=== PATIENT | female | born 2000 | race American Indian/Alaskan Native ===

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

== ENCOUNTER 2020-04-18 14:02 | Emergency (ER) | payer BC, OTHER ==
[2020-04-18] MEDS ORDERED: Morphine 15 MG Tab PO ONE (14:38)
[2020-04-18] MEDS ORDERED: Acetaminophen 325 MG Tab PO ONE (14:38)
--- NOTE | 2020-04-18 14:55 | EDM.PDOC ---
ED 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 She complains of severe lateral left knee pain and proximal fibular pain. No loss of consciousness. She did not strike or hurt her abdomen. No vaginal bleeding or discharge. Her water did not break. No urinary symptoms. Denies any head trauma or neck pain. Review of systems: A 10-point review of systems, other than pertinent positives and negatives as stated per HPI, is otherwise negative. Past medical history: As per history of present illness and as reviewed below otherwise noncontributory. Surgical history: As per history of present illness and as reviewed below otherwise noncontri butory. Social history: No reported history of drug or alcohol abuse. Family history: As per history of present illness and as reviewed below otherwise noncontributory. Physical exam: VITAL SIGNS: Reviewed. GENERAL: Appears to be in acute pain HEAD: No signs of head trauma. EYES: Pupils are equal. Extraocular motions intact. EARS: Hearing grossly intact. MOUTH: Oropharynx is normal. NECK: Supple. NEXUS Criteria for Imaging of C-Spine: Focal Neuro Deficit: No Spinal Midline Tenderness: No ALOC: No Intoxication: No Distracting Injury: No C-Spine can be clinically cleared. No imaging Required. CHEST: Chest with clear breath sounds bilaterally. No wheezes, rales, or rhonchi. CARDIAC: Regular rate and rhythm. Normal S1 and S2, without murmurs, gallops, or rubs. VASCULAR: Peripheral pulses normal and equal in all extremities. ABDOMEN: Soft, without detectable tenderness. No sign of distention. No rebound or guarding, and no masses palpated. MUSCULOSKELETAL: Anterior posterior ligament is stable in the left knee. The medial collateral ligament is stable. The lateral collateral ligament does have some laxity when compared with the other side. Patella is normal and there is no evidence of dislocation. Some mild joint effusion is palpable. Distal neurovascular function is intact. Proximal fibular head on the left is very tender. NEUROLOGIC EXAM: Alert and oriented x 3. No focal sensory or motor deficits. Speech normal. Follows commands. PSYCHIATRIC: Mood normal. SKIN: No rash or lesions. Initial Differential Diagnosis & Plan: Extremity trauma: Differential diagnosis includes fracture, dislocation, strain, contusion, tendon or ligamentous injury, compartment syndrome, neurovascular injury, muscle rupture. Mild laxity in the lateral collateral ligament on the left knee. She also has proximal tenderness at the fibular head. I will obtain an x-ray of the knee and tibia-fibula. No ankle pain. Distal neurovascular function is intact. Definitive disposition and diagnosis as appropriate pending reevaluation and review of above. left lower leg Pain Score (Numeric/FACES): 10 - Related Data Allergies Allergy/AdvReac Type Severity Reaction Status Date / Time No Known Allergies Allergy Verified 04/18/20 14:06 Home Meds: Home Meds Famotidine 20 mg PO BID 04/18/20 [History] Vits #93/Iron Fum/FA [ Formula Tablet] 1 each PO DAILY 04/18/20 [History] Past Medical History - Past Health History Medical/Surgical History: Denies Medical/Surgical History HEENT History: Reports: Other (See Below) Other HEENT History: wears glasses Cardiovascular History: Reports: None Respiratory History: Reports: None Gastrointestinal History: Reports: Cholelithiasis Genitourinary History: Reports: None 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: Musculoskeletal History: Reports: None Neurological History: Reports: None Psychiatric History: Reports: None Endocrine/Metabolic History: Reports: Obesity/BMI 30+ Hematologic History: Reports: None Immunologic History: Reports: None Oncologic (Cancer) History: Reports: None Dermatologic History: Reports: None - Infectious Disease History Infectious Disease History: Reports: None - Past Surgical History Head Surgeries/Procedures: Reports: None HEENT Surgical History: Reports: Oral Surgery Cardiovascular Surgical History: Reports: None Respiratory Surgical History: Reports: None GI Surgical History: Reports: Cholecystectomy Female Surgical History: Reports: None Endocrine Surgical History: Reports: None Neurological Surgical History: Reports: None Musculoskeletal Surgical History: Reports: None Oncologic Surgical History: Reports: None Dermatological Surgical History: Reports: None Social & Family History - Family History Family Medical History: Noncontributory - Tobacco Use Smoking Status *Q: Never Smoker - Caffeine Use Caffeine Use: Reports: Energy Drinks - Recreational Drug Use Recreational Drug Use: No ED ROS GENERAL - Review of Systems Review Of Systems: See Below (noted) ED EXAM, GENERAL - Physical Exam Exam: See Below (noted) ED GENERAL MEDICAL PROCEDURES - Additional/Other Procedure(s) Other (Free Text) Procedure(s): PROCEDURE: Fracture Care LOCATION AND FRACTURE TYPE: Proximal fibular fracture; left INDICATION: Fracture DETAILS: [inline traction was applied with return of normal anatomic alignment.] SPLINTING PROCEDURE NOTE: Short leg posterior COMPLICATIONS: None NEUROVASCULAR EXAM: intact both before and after procedure. Course - Vital Signs Last Recorded V/S: Last Vital Signs Temp 97.5 F 04/18/20 14:07 Pulse 81 04/18/20 14:07 Resp 20 04/18/20 14:07 BP Pulse Ox 97 04/18/20 14:07 - Orders/Labs/Meds Orders: Active Orders 24 hr Category Date Time Status Splinting [RC] ASDIRECTED Care 04/18/20 15:14 Active DME for Discharge [COMM] Stat Oth 04/18/20 15:29 Ordered Meds: Medications Discontinued Medications Generic Name Dose Route Start Last Admin Trade Name Keesha PRN Reason Stop Dose Admin Acetaminophen 975 mg 04/18/20 14:38 04/18/20 15:07 Tylenol PO 04/18/20 14:39 975 mg NOW ONE Administration Morphine Sulfate 15 mg 04/18/20 14:38 04/18/20 15:06 Morphine PO 04/18/20 14:39 15 mg ONETIME ONE Administration - Re-Assessments/Exams Free Text/Narrative Re-Assessment/Exam: 04/18/20 15:15 X-rays reveal proximal fibular fracture which is the area of tenderness. I will place the patient in a short leg posterior and have her follow-up with orthop edics. My diagnostic impression: 1. Proximal fibular fracture; left 2. Ligamentous laxity left knee lateral collateral ligament strain 3. Second trimester Departure - Departure Time of Disposition: 15:16 Disposition: Home, Self-Care 01 Clinical Impression: Fracture, fibula, proximal, Lateral collateral ligament sprain of knee - Discharge Information *PRESCRIPTION DRUG MONITORING PROGRAM REVIEWED*: Not Applicable *COPY OF PRESCRIPTION DRUG MONITORING REPORT IN PATIENT GIAN: Not Applicable Instructions: Nondisplaced Fibular Ankle Fracture Treated With Immobilization, Adult, How to Use Cold Therapy, [id number], Knee Sprain, Adult, [id number], Elastic Bandage and RICE Therapy Referrals: Nimisha Summers MD [Primary Care Provider] - Forms: ED Department Discharge Additional Instructions: The following information is given to patients seen in the emergency department who are being discharged to home. This information is to outline your options for follow-up care. We provide all patients seen in our emergency department with a follow-up referral. The need for follow-up, as well as the timing and circumstances, are variable depending upon the specifics of your emergency department visit. If you don't have a primary care physician on staff, we will provide you with a referral. We always advise you to contact your personal physician following an emergency department visit to inform them of the circumstance of the visit and for follow-up with them and/or the need for any referrals to a consulting specialist. The emergency department will also refer you to a specialist when appropriate. This referral assures that you have the opportunity for follow-up care with a specialist. All of these measure are taken in an effort to provide you with optimal care, which includes your follow-up. Thank you for coming to the [facility] urgency department for your care today. It was Dr. Tolliver's pleasure to take care of you. You have a proximal fibular fracture and a lateral collateral ligament strain. These can be very painful. Please use the splint as directed. Please use the crutches. Follow-up with the glaucoma specialist. Return emergency department for worsening or any other concerns. Please stay mobile. You are at high risk to have a blood clot in your leg or lungs. It is important for you to get up and move around every couple of hours unless you are asleep. [facility] - Orthopedic Clinic Professional Building [address] [place] [address], [address] [place] [address] Under all circumstances we always encourage you to contact your private physician who remains a resource for coordinating your care. When calling for follow-up care, please make the office aware that this follow-up is from your recent emergency room visit. If for any reason you are refused follow-up, please contact the [facility] Emergency Department at and asked to speak to the emergency department charge nurse. Sepsis Event Note (ED) - Evaluation Sepsis Screening Result: No Definite Risk - Focused Exam Vital Signs: Vital Signs Temp Pulse Resp Pulse Ox 04/18/20 14:07 97.5 F 81 20 97 - My Orders Last 24 Hours: My Active Orders 04/18/20 15:14 Splinting [RC] ASDIRECTED 04/18/20 15:29 DME for Discharge [COMM] Stat - Assessment/Plan Last 24 Hours: My Active Orders 04/18/20 15:14 Splinting [RC] ASDIRECTED 04/18/20 15:29 DME for Discharge [COMM] Stat
--- NOTE | 2020-04-18 15:16 | CR ---
Left knee: AP, lateral and sunrise patellar views of the left knee were obtained. Comparison: No prior knee exam. Medial and lateral joint compartments are maintained in height. Lucency is seen within the fibular head compatible with nondisplaced fracture. Small joint effusion is suggested. No additional abnormality is appreciated. Impression: 1. Findings compatible with nondisplaced fracture involving the fibular head. Diagnostic code #3 This report was dictated in MDT
--- NOTE | 2020-04-18 15:16 | CR ---
Left tibia and fibula: AP and lateral views of the left tibia and fibula were obtained. Nondisplaced fracture involving the fibular head is again noted. No additional fracture or other bony abnormality is appreciated. Impression: 1. Nondisplaced fibular head fracture. 2. Left tibia and fibula study is otherwise unremarkable. Diagnostic code #2 This report was dictated in MDT
== END 2020-04-18 15:45 | disposition home or self-care (01) ==
LOC: MW.ED 14:02
DX: O9A.212 Injury, poisoning and certain other consequences of external causes complicating pregnancy, second trimester (principal); S82.832A Other fracture of upper and lower end of left fibula, initial encounter for closed fracture; S83.422A Sprain of lateral collateral ligament of left knee, initial encounter; O99.212 Obesity complicating pregnancy, second trimester; X50.1XXA Overexertion from prolonged static or awkward postures, initial encounter; Y92.009 Unspecified place in unspecified non-institutional (private) residence as the place of occurrence of the external cause; Z3A.26 26 weeks gestation of pregnancy
CPT/HCPCS: 29515; 73562; 73590; 99283; A9270; 27780

== ENCOUNTER 2020-07-14 12:34 | Inpatient (IN) | payer BC, OTHER ==
[2020-07-14] MEDS ORDERED: Nalbuphine 10 MG/1 ML Vial IVPUSH PRN (16:06)
[2020-07-14] MEDS ORDERED: Sodium Chloride 0.9% 10 ML SDV IV PRN (16:06)
[2020-07-14] MEDS ORDERED: Lidocaine 1% 50 ML MDV INJECT PRN (16:06)
[2020-07-14] MEDS ORDERED: Methylergonovine 0.2 MG/1 ML Amp IM PRN (16:06)
[2020-07-14] MEDS ORDERED: Carboprost Tromethamine 250 MCG/1 ML Amp IM PRN (16:06)
[2020-07-14] MEDS ORDERED: Sodium Chloride 0.9% 10 ML Syringe FLUSH PRN (16:06)
[2020-07-14] MEDS ORDERED: Sodium Chloride 0.9% 2.5 ML Syringe FLUSH PRN (16:06)
[2020-07-14] MEDS ORDERED: Misoprostol 200 MCG Tab PO PRN (16:06)
[2020-07-14] MEDS ORDERED: Butorphanol 1 MG/ML SDV IVPUSH PRN (16:06)
[2020-07-14] MEDS ORDERED: Tranexamic Acid 1,000 MG in Sodium Chloride 0.9% 100 ML IV PRN (16:06)
[2020-07-14] MEDS ORDERED: Water For Irrigation,Sterile 1,000 ML Container IRR PRN (16:06)
[2020-07-14] MEDS ORDERED: Oxytocin/0.9 % Sodium Chloride 30 UNIT/500 ML BAG IV SCH ×2 (16:15→21:00)
[2020-07-14] MEDS: Lactated Ringers 1,000 ML IV SCH ×3 (17:40→18:36)
[2020-07-14] MEDS ORDERED: fentaNYL 100 MCG/2 ML SDV ONE (18:21)
[2020-07-14] MEDS ORDERED: Ropivacaine HCl/PF 100 ML ONE (18:21)
--- NOTE | 2020-07-14 19:14 | PCM.PREANE ---
Preanesthetic Assessment - Anesthesia/Transfusion/Family Hx Anesthesia History: Prior Anesthesia Without Reaction Family History of Anesthesia Reaction: No Transfusion History: No Prior Transfusion(s) Intubation History: Unknown - Physical Assessment NPO Status Date: 07/14/20 NPO Status Time: 12:00 Height: 1.57 m Weight: 93.44 kg ASA Class: 2 - Lab Values: Laboratory Last Values WBC 16.53 K/uL (4.0-11.0) H 07/14/20 16:20 RBC 3.72 M/uL (4.30-5.90) L 07/14/20 16:20 Hgb 11.8 g/dL (12.0-16.0) L 07/14/20 16:20 Hct 35.8 % (36.0-46.0) L 07/14/20 16:20 MCV 96.2 fL (80.0-98.0) 07/14/20 16:20 MCH 31.7 pg (27.0-32.0) 07/14/20 16:20 MCHC 33.0 g/dL (31.0-37.0) 07/14/20 16:20 RDW Std Deviation 50.2 fl (28.0-62.0) 07/14/20 16:20 RDW Coeff of Ladi 14 % (11.0-15.0) 07/14/20 16:20 Plt Count 230 K/uL (150-400) 07/14/20 16:20 MPV 10.00 fL (7.40-12.00) 07/14/20 16:20 Nucleated RBC % 0.0 /100WBC 07/14/20 16:20 Nucleated RBCs # 0 K/uL 07/14/20 16:20 SARS-CoV-2 RNA (ROCIO) NEGATIVE (NEGATIVE) 07/14/20 14:24 Blood Type O NEGATIVE 07/14/20 16:20 Antibody Screen NEGATIVE 07/14/20 16:20 - Allergies Allergies/Adverse Reactions: Allergies Allergy/AdvReac Type Severity Reaction Status Date / Time No Known Allergies Allergy Verified 04/18/20 14:06 - Acknowledgements Anesthesia Type Planned: Epidural Pt an Appropriate Candidate for the Planned Anesthesia: Yes Alternatives and Risks of Anesthesia Discussed w Pt/Guardian: Yes Pt/Guardian Understands and Agrees with Anesthesia Plan: Yes PreAnesthesia Questionnaire - Past Health History Medical/Surgical History: Denies Medical/Surgical History HEENT History: Reports: Impaired Vision, Other (See Below) Other HEENT History: wears glasses Cardiovascular History: Reports: None Respiratory History: Reports: None Gastrointestinal History: Reports: Cholelithiasis Genitourinary History: Reports: None 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: Musculoskeletal History: Reports: None Neurological History: Reports: None Psychiatric History: Reports: None Endocrine/Metabolic History: Reports: Obesity/BMI 30+ Hematologic History: Reports: None Immunologic History: Reports: None Oncologic (Cancer) History: Reports: None Dermatologic History: Reports: None - Infectious Disease History Infectious Disease History: Reports: None - Past Surgical History Head Surgeries/Procedures: Reports: None HEENT Surgical History: Reports: Oral Surgery Cardiovascular Surgical History: Reports: None Respiratory Surgical History: Reports: None GI Surgical History: Reports: Cholecystectomy Female Surgical History: Reports: None Endocrine Surgical History: Reports: None Neurological Surgical History: Reports: None Musculoskeletal Surgical History: Reports: None Oncologic Surgical History: Reports: None Dermatological Surgical History: Reports: None - SUBSTANCE USE Tobacco Use Status *Q: Never Tobacco User Recreational Drug Use History: No - HOME MEDS Home Medications: Home Meds Famotidine 20 mg PO BID 04/18/20 [History] Vits #93/Iron Fum/FA [ Formula Tablet] 1 each PO DAILY 04/18/20 [History] - CURRENT (IN HOUSE) MEDS Current Meds: Current Medications Butorphanol Tartrate (Stadol) 1 mg IVPUSH Q1H PRN PRN Reason: Pain Carboprost Tromethamine (Hemabate Ds) 250 mcg IM ASDIRECTED PRN PRN Reason: Post Hemorrhage Lactated Ringer's (Ringers, Lactated) 1,000 mls @ 150 mls/hr IV ASDIRECTED ZION Last Admin: 07/14/20 18:36 Dose: 999 mls/hr Documented by: Oxytocin/Sodium Chloride (Oxytocin 30 Unit/500 Ml-Ns) 30 unit in 500 mls @ 999 mls/hr IV TITRATE [facility] Tranexamic Acid 1,000 mg/ (Sodium Chloride) 110 mls @ 660 mls/hr IV ONETIME PRN PRN Reason: Bleeding Lidocaine HCl (Xylocaine 1%) 50 ml INJECT ONETIME PRN PRN Reason: Laceration repair Methylergonovine Maleate (Methergine) 0.2 mg IM ASDIRECTED PRN PRN Reason: Post Hemorrhage Misoprostol (Cytotec) 200 mcg PO ONETIME PRN PRN Reason: Post Hemorrhage Nalbuphine HCl (Nubain) 10 mg IVPUSH Q1H PRN PRN Reason: Pain (severe 7-10) Sodium Chloride (Saline Flush) 10 ml FLUSH ASDIRECTED PRN PRN Reason: Keep Vein Open Sodium Chloride (Saline Flush) 2.5 ml FLUSH ASDIRECTED PRN PRN Reason: Keep Vein Open Sodium Chloride (Normal Saline) 10 ml IV ASDIRECTED PRN PRN Reason: IV Use Sterile Water (Sterile Water For Irrigation) 1,000 ml IRR ASDIRECTED PRN PRN Reason: delivery Discontinued Medications Fentanyl (Sublimaze) Confirm Administered Dose 100 mcg .ROUTE .STK-MED ONE Stop: 07/14/20 18:22 Ropivacaine (Naropin 0.2%) Confirm Administered Dose 100 mls @ as directed .ROUTE .STK-MED ONE Stop: 07/14/20 18:22
--- NOTE | 2020-07-14 19:17 | PCM.PRNOTE ---
- Free Text/Narrative Note: Anes Note Patient requests epidural for L&D. Sitting position level L3-L4 midline approach. Sterile technique. Chloraprep scrub to lumbar area. Sterile fenestrated drape applied. Epidural space easily achieved singel attempt using TROY technique. TROY at 3 cm. Cath threaded 5 cm with ease. Cath secured at skin using sterile clear adhesive dressing. Test 1829 3 cc 1.5% lido with epi negative. Load 1833 10 cc 0.2% ropiviciane with 1 mcg cc fentnayl in slow divided doses. 1835 pump started with 90 cc same solution. Rate is 8 cc hr with 6 cc q 20 min prn bolus. 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
[2020-07-14] MEDS ORDERED: Lanolin 100% Cream 7 GM Tube TOP PRN (23:35)
[2020-07-14] MEDS ORDERED: Witch Hazel Medicated Pads 40/Jar TOP PRN (23:35)
[2020-07-14] MEDS ORDERED: Ibuprofen 400 MG Tab PO PRN (23:35)
[2020-07-14] MEDS ORDERED: Acetaminophen 500 MG Tab PO PRN (23:35)
[2020-07-14] MEDS ORDERED: oxyCODONE 5 MG Tab PO PRN (23:35)
[2020-07-14] MEDS ORDERED: Bisacodyl 10 MG Supp RECTAL PRN (23:35)
[2020-07-14] MEDS ORDERED: Benzocaine/Menthol 20%-0.5% Spray 78 GM Cannister TOP PRN (23:35)
--- NOTE | 2020-07-14 23:39 | PCM.DEL ---
L & D Note - General Info Date of Service: 07/14/20 - Delivery Note Labor: Augmented by Oxytocin Delivery Outcome: Livebirth Presentation: Left Occiput Anterior (NADYA) Nuchal Cord: None Anesthesia Type: Epidural Amniotic Fluid Description: Meconium Stained Episiotomy Type: None Laceration: 1st Degree Suture type: Vicryl Suture size: 3-0 Placenta: Intact Cord: 3 Vessels Estimated Blood Loss: 300 Resuscitation Needed: No Score 1 min: 9 Score 5 min: 9 Delivery Comments (Free Text/Narrative):: Live male delivered at 2258 , 9/9 weight 3300g - General Info Date of Service: 07/14/20 Functional Status: Reports: Pain Controlled, Tolerating Diet, Ambulating, Urinating - Patient Data Weight - Most Recent: 93.44 kg Lab Results Last 24 Hours: Laboratory Results - last 24 hr 07/14/20 07/14/20 07/14/20 Range/Units 14:24 16:20 16:20 WBC 16.53 H (4.0-11.0) K/uL RBC 3.72 L (4.30-5.90) M/uL Hgb 11.8 L (12.0-16.0) g/dL Hct 35.8 L (36.0-46.0) % MCV 96.2 (80.0-98.0) fL MCH 31.7 (27.0-32.0) pg MCHC 33.0 (31.0-37.0) g/dL RDW Std Deviation 50.2 (28.0-62.0) fl RDW Coeff of Ladi 14 (11.0-15.0) % Plt Count 230 (150-400) K/uL MPV 10.00 (7.40-12.00) fL Nucleated RBC % 0.0 /100WBC Nucleated RBCs # 0 K/uL SARS-CoV-2 RNA (ROCIO) NEGATIVE (NEGATIVE) Blood Type O NEGATIVE Antibody Screen NEGATIVE Med Orders - Current: Current Medications Acetaminophen (Tylenol Extra Strength) 500 mg PO Q4H PRN PRN Reason: Pain Acetaminophen (Tylenol Extra Strength) 1,000 mg PO Q4H PRN PRN Reason: Pain Benzocaine/Menthol (Dermoplast Pain Relief 20%-0.5% [place]) 78 gm TOP ASDIRECTED PRN PRN Reason: Perineal Comfort Measure Bisacodyl (Dulcolax) 10 mg RECTAL ONETIME PRN PRN Reason: Constipation Carboprost Tromethamine (Hemabate Ds) 250 mcg IM ASDIRECTED PRN PRN Reason: Post Hemorrhage Docusate Sodium (Colace) 100 mg PO BID PRN PRN Reason: Constipation Emollient Ointment (Lansinoh Hpa) 0 gm TOP ASDIRECTED PRN PRN Reason: Sore Nipples Lactated Ringer's (Ringers, Lactated) 1,000 mls @ 150 mls/hr IV ASDIRECTED ZION Last Admin: 07/14/20 18:36 Dose: 999 mls/hr Documented by: Oxytocin/Sodium Chloride (Oxytocin 30 Unit/500 Ml-Ns) 30 unit in 500 mls @ 999 mls/hr IV TITRATE [facility] Last Admin: 07/14/20 22:59 Dose: 999 mls/hr Documented by: Tranexamic Acid 1,000 mg/ (Sodium Chloride) 110 mls @ 660 mls/hr IV ONETIME PRN PRN Reason: Bleeding Oxytocin/Sodium Chloride (Oxytocin 30 Unit/500 Ml-Ns) 30 unit in 500 mls @ 2 mls/hr IV TITRATE [facility]; Protocol Ibuprofen (Motrin) 400 mg PO Q4H PRN PRN Reason: Pain Ibuprofen (Motrin) 800 mg PO Q6H PRN PRN Reason: Pain Lidocaine HCl (Xylocaine 1%) 50 ml INJECT ONETIME PRN PRN Reason: Laceration repair Methylergonovine Maleate (Methergine) 0.2 mg IM ASDIRECTED PRN PRN Reason: Post Hemorrhage Misoprostol (Cytotec) 200 mcg PO ONETIME PRN PRN Reason: Post Hemorrhage Oxycodone HCl (Oxycodone) 5 mg PO Q2H PRN PRN Reason: Pain Sodium Chloride (Saline Flush) 10 ml FLUSH ASDIRECTED PRN PRN Reason: Keep Vein Open Sodium Chloride (Saline Flush) 2.5 ml FLUSH ASDIRECTED PRN PRN Reason: Keep Vein Open Sodium Chloride (Normal Saline) 10 ml IV ASDIRECTED PRN PRN Reason: IV Use Sterile Water (Sterile Water For Irrigation) 1,000 ml IRR ASDIRECTED PRN PRN Reason: delivery Witch Rebekah (Tucks) 1 pad TOP ASDIRECTED PRN PRN Reason: comfort care Discontinued Medications Butorphanol Tartrate (Stadol) 1 mg IVPUSH Q1H PRN PRN Reason: Pain Fentanyl (Sublimaze) Confirm Administered Dose 100 mcg .ROUTE .STK-MED ONE Stop: 07/14/20 18:22 Ropivacaine (Naropin 0.2%) Confirm Administered Dose 100 mls @ as directed .ROUTE .STK-MED ONE Stop: 07/14/20 18:22 Nalbuphine HCl (Nubain) 10 mg IVPUSH Q1H PRN PRN Reason: Pain (severe 7-10) - Problem List & Annotations (1) Vaginal delivery SNOMED Code(s): 006961247 Code(s): O80 - ENCOUNTER FOR FULL-TERM UNCOMPLICATED DELIVERY Status: Acute Current Visit: Yes - Problem List Review Problem List Initiated/Reviewed/Updated: Yes - My Orders Last 24 Hours: My Active Orders 07/14/20 14:27 Patient Status [ADT] Routine Up ad Roxy [RC] ASDIRECTED Vital Signs [RC] PER UNIT ROUTINE 07/14/20 16:06 Patient Status [ADT] Routine May Shower [RC] ASDIRECTED Notify Provider [RC] PRN Up ad Roxy [RC] ASDIRECTED Vital Signs [RC] PER UNIT ROUTINE Carboprost Tromethamine [Hemabate DS] 250 mcg IM ASDIRECTED PRN Lidocaine 1% [Xylocaine 1%] 50 ml INJECT ONETIME PRN Methylergonovine [Methergine] 0.2 mg IM ASDIRECTED PRN Sodium Chloride 0.9% [Normal Saline] 10 ml IV ASDIRECTED PRN Sodium Chloride 0.9% [Saline Flush] 10 ml FLUSH ASDIRECTED PRN Sodium Chloride 0.9% [Saline Flush] 2.5 ml FLUSH ASDIRECTED PRN Tranexamic Acid [Cyklokapron] 1,000 mg Sodium Chloride 0.9% [Normal Saline] 100 ml IV ONETIME Water For Irrigation,Sterile [Sterile Water for Irrigation] 1,000 ml IRR ASDIRECTED PRN miSOPROStoL [Cytotec] 200 mcg PO ONETIME PRN Peripheral IV Insertion Adult [OM.PC] Routine 07/14/20 16:15 Lactated Ringers [Ringers, Lactated] 1,000 ml IV ASDIRECTED Oxytocin/0.9 % Sodium Chloride [Oxytocin 30 Unit/500 ML-NS] 30 unit in 500 ml IV TITRATE 07/14/20 16:20 RPR (SYPHILIS SERO) W/ RFLX [REF] Routine 07/14/20 21:00 Oxytocin/0.9 % Sodium Chloride [Oxytocin 30 Unit/500 ML-NS] 30 unit in 500 ml IV TITRATE 07/14/20 23:35 May Shower [RC] ASDIRECTED Up ad Roxy [RC] ASDIRECTED Vital Signs [RC] PER UNIT ROUTINE BLOOD GAS ARTERIAL UMBILICAL [BG] Stat BLOOD GAS VENOUS UMBILICAL [BG] Stat RHIG WORKUP, [BBK] Routine Acetaminophen [Tylenol Extra Strength] 1,000 mg PO Q4H PRN Acetaminophen [Tylenol Extra Strength] 500 mg PO Q4H PRN Benzocaine/Menthol [Dermoplast Pain Relief 20%-0.5% [place]] 78 gm TOP ASDIRECTED PRN Docusate Sodium [Colace] 100 mg PO BID PRN Ibuprofen [Motrin] 400 mg PO Q4H PRN Ibuprofen [Motrin] 800 mg PO Q6H PRN Lanolin [Lansinoh HPA] See Dose Instructions TOP ASDIRECTED PRN bisacodyL [Dulcolax] 10 mg RECTAL ONETIME PRN oxyCODONE 5 mg PO Q2H PRN witch Rebekah [Tucks] 1 pad TOP ASDIRECTED PRN Assess Lochia [WOMSER] Per Unit Routine Assess Uterine Involution [WOMSER] Per Unit Routine Peripheral IV Discontinue [OM.PC] Routine Resuscitation Status Routine 07/15/20 05:11 HEMOGLOBIN/HEMATOCRIT,HH [HEME] Timed - Assessment Assessment:: 19yo P1 s/p PPD 0 Rh negative
[2020-07-15] MEDS: Ibuprofen 800 MG Tab PO PRN ×2 (06:18→16:03)
--- NOTE | 2020-07-15 06:55 | PCM.PNPP ---
- General Info Date of Service: 07/15/20 Subjective Update: 19yo P1 s/p PPD1 Normal lochia Functional Status: Reports: Pain Controlled, Tolerating Diet, Ambulating, Urinating - Review of Systems General: Reports: No Symptoms HEENT: Reports: No Symptoms Pulmonary: Reports: No Symptoms - General Info Date of Service: 07/15/20 - Patient Data Vital Signs - Most Recent: Last Vital Signs Temp 36.5 C 07/15/20 04:39 Pulse 94 07/15/20 04:39 Resp 20 07/15/20 04:39 BP 99/50 L 07/15/20 04:39 Pulse Ox 97 07/15/20 04:39 Weight - Most Recent: 93.44 kg Lab Results - Last 24 Hours: Laboratory Results - last 24 hr 07/14/20 07/14/20 07/14/20 Range/Units 14:24 16:20 16:20 WBC 16.53 H (4.0-11.0) K/uL RBC 3.72 L (4.30-5.90) M/uL Hgb 11.8 L (12.0-16.0) g/dL Hct 35.8 L (36.0-46.0) % MCV 96.2 (80.0-98.0) fL MCH 31.7 (27.0-32.0) pg MCHC 33.0 (31.0-37.0) g/dL RDW Std Deviation 50.2 (28.0-62.0) fl RDW Coeff of Ladi 14 (11.0-15.0) % Plt Count 230 (150-400) K/uL MPV 10.00 (7.40-12.00) fL Nucleated RBC % 0.0 /100WBC Nucleated RBCs # 0 K/uL Cord ABG pH (7.18-7.38) Cord ABG Base Excess (-10--2) Cord VBG pH (7.25-7.45) Cord VBG Base Excess (-10--2) SARS-CoV-2 RNA (ROCIO) NEGATIVE (NEGATIVE) Blood Type O NEGATIVE Antibody Screen NEGATIVE Screen (NEGATIVE) RhIG Candidate? Rhogam Indicated 07/14/20 07/15/20 07/15/20 Range/Units 22:58 00:32 05:30 WBC (4.0-11.0) K/uL RBC (4.30-5.90) M/uL Hgb 10.5 L (12.0-16.0) g/dL Hct 32.0 L (36.0-46.0) % MCV (80.0-98.0) fL MCH (27.0-32.0) pg MCHC (31.0-37.0) g/dL RDW Std Deviation (28.0-62.0) fl RDW Coeff of Ladi (11.0-15.0) % Plt Count (150-400) K/uL MPV (7.40-12.00) fL Nucleated RBC % /100WBC Nucleated RBCs # K/uL Cord ABG pH 7.173 L (7.18-7.38) Cord ABG Base Excess -12 L (-10--2) Cord VBG pH 7.262 (7.25-7.45) Cord VBG Base Excess -10 (-10--2) SARS-CoV-2 RNA (ROCIO) (NEGATIVE) Blood Type Antibody Screen Screen NEGATIVE (NEGATIVE) RhIG Candidate? YES Rhogam Indicated YES, BABY RH POS H Med Orders - Current: Current Medications Acetaminophen (Tylenol Extra Strength) 500 mg PO Q4H PRN PRN Reason: Pain Acetaminophen (Tylenol Extra Strength) 1,000 mg PO Q4H PRN PRN Reason: Pain Benzocaine/Menthol (Dermoplast Pain Relief 20%-0.5% [place]) 78 gm TOP ASDIRECTED PRN PRN Reason: Perineal Comfort Measure Bisacodyl (Dulcolax) 10 mg RECTAL ONETIME PRN PRN Reason: Constipation Carboprost Tromethamine (Hemabate Ds) 250 mcg IM ASDIRECTED PRN PRN Reason: Post Hemorrhage Docusate Sodium (Colace) 100 mg PO BID PRN PRN Reason: Constipation Emollient Ointment (Lansinoh Hpa) 0 gm TOP ASDIRECTED PRN PRN Reason: Sore Nipples Lactated Ringer's (Ringers, Lactated) 1,000 mls @ 150 mls/hr IV ASDIRECTED ZION Last Admin: 07/14/20 18:36 Dose: 999 mls/hr Documented by: Oxytocin/Sodium Chloride (Oxytocin 30 Unit/500 Ml-Ns) 30 unit in 500 mls @ 999 mls/hr IV TITRATE [facility] Last Admin: 07/14/20 22:59 Dose: 999 mls/hr Documented by: Tranexamic Acid 1,000 mg/ (Sodium Chloride) 110 mls @ 660 mls/hr IV ONETIME PRN PRN Reason: Bleeding Oxytocin/Sodium Chloride (Oxytocin 30 Unit/500 Ml-Ns) 30 unit in 500 mls @ 2 mls/hr IV TITRATE [facility]; Protocol Ibuprofen (Motrin) 400 mg PO Q4H PRN PRN Reason: Pain Ibuprofen (Motrin) 800 mg PO Q6H PRN PRN Reason: Pain Last Admin: 07/15/20 06:18 Dose: 800 mg Documented by: Lidocaine HCl (Xylocaine 1%) 50 ml INJECT ONETIME PRN PRN Reason: Laceration repair Methylergonovine Maleate (Methergine) 0.2 mg IM ASDIRECTED PRN PRN Reason: Post Hemorrhage Misoprostol (Cytotec) 200 mcg PO ONETIME PRN PRN Reason: Post Hemorrhage Oxycodone HCl (Oxycodone) 5 mg PO Q2H PRN PRN Reason: Pain Sodium Chloride (Saline Flush) 10 ml FLUSH ASDIRECTED PRN PRN Reason: Keep Vein Open Sodium Chloride (Saline Flush) 2.5 ml FLUSH ASDIRECTED PRN PRN Reason: Keep Vein Open Sodium Chloride (Normal Saline) 10 ml IV ASDIRECTED PRN PRN Reason: IV Use Sterile Water (Sterile Water For Irrigation) 1,000 ml IRR ASDIRECTED PRN PRN Reason: delivery Witch Rebekah (Tucks) 1 pad TOP ASDIRECTED PRN PRN Reason: comfort care Discontinued Medications Butorphanol Tartrate (Stadol) 1 mg IVPUSH Q1H PRN PRN Reason: Pain Fentanyl (Sublimaze) Confirm Administered Dose 100 mcg .ROUTE .STK-MED ONE Stop: 07/14/20 18:22 Ropivacaine (Naropin 0.2%) Confirm Administered Dose 100 mls @ as directed .ROUTE .STK-MED ONE Stop: 07/14/20 18:22 Nalbuphine HCl (Nubain) 10 mg IVPUSH Q1H PRN PRN Reason: Pain (severe 7-10) - Interaction Support Person: Significant Other - Exam General: Alert HEENT: Pupils Equal Neck: Supple Lungs: Clear to Auscultation Cardiovascular: Regular Rate, Regular Rhythm GI/Abdominal Exam: Normal Bowel Sounds Extremities: Normal Inspection Neurological: No New Focal Deficit Psy/Mental Status: Alert - Problem List & Annotations (1) Vaginal delivery SNOMED Code(s): 338378799 Code(s): O80 - ENCOUNTER FOR FULL-TERM UNCOMPLICATED DELIVERY Status: Acute Current Visit: Yes - Problem List Review Problem List Initiated/Reviewed/Updated: No - My Orders Last 24 Hours: My Active Orders 07/14/20 14:27 Patient Status [ADT] Routine Vital Signs [RC] PER UNIT ROUTINE 07/14/20 16:06 Patient Status [ADT] Routine Notify Provider [RC] PRN Vital Signs [RC] PER UNIT ROUTINE Carboprost Tromethamine [Hemabate DS] 250 mcg IM ASDIRECTED PRN Lidocaine 1% [Xylocaine 1%] 50 ml INJECT ONETIME PRN Methylergonovine [Methergine] 0.2 mg IM ASDIRECTED PRN Sodium Chloride 0.9% [Normal Saline] 10 ml IV ASDIRECTED PRN Sodium Chloride 0.9% [Saline Flush] 10 ml FLUSH ASDIRECTED PRN Sodium Chloride 0.9% [Saline Flush] 2.5 ml FLUSH ASDIRECTED PRN Tranexamic Acid [Cyklokapron] 1,000 mg Sodium Chloride 0.9% [Normal Saline] 100 ml IV ONETIME Water For Irrigation,Sterile [Sterile Water for Irrigation] 1,000 ml IRR ASDIRECTED PRN miSOPROStoL [Cytotec] 200 mcg PO ONETIME PRN Peripheral IV Insertion Adult [OM.PC] Routine 07/14/20 16:15 Lactated Ringers [Ringers, Lactated] 1,000 ml IV ASDIRECTED Oxytocin/0.9 % Sodium Chloride [Oxytocin 30 Unit/500 ML-NS] 30 unit in 500 ml IV TITRATE 07/14/20 16:20 RPR (SYPHILIS SERO) W/ RFLX [REF] Routine 07/14/20 21:00 Oxytocin/0.9 % Sodium Chloride [Oxytocin 30 Unit/500 ML-NS] 30 unit in 500 ml IV TITRATE 07/14/20 23:35 May Shower [RC] ASDIRECTED Up ad Roxy [RC] ASDIRECTED Vital Signs [RC] PER UNIT ROUTINE RHIG WORKUP, [BBK] Routine Acetaminophen [Tylenol Extra Strength] 1,000 mg PO Q4H PRN Acetaminophen [Tylenol Extra Strength] 500 mg PO Q4H PRN Benzocaine/Menthol [Dermoplast Pain Relief 20%-0.5% [place]] 78 gm TOP ASDIRECTED PRN Docusate Sodium [Colace] 100 mg PO BID PRN Ibuprofen [Motrin] 400 mg PO Q4H PRN Ibuprofen [Motrin] 800 mg PO Q6H PRN Lanolin [Lansinoh HPA] See Dose Instructions TOP ASDIRECTED PRN bisacodyL [Dulcolax] 10 mg RECTAL ONETIME PRN oxyCODONE 5 mg PO Q2H PRN witch Rebekah [Tucks] 1 pad TOP ASDIRECTED PRN Assess Lochia [WOMSER] Per Unit Routine Assess Uterine Involution [WOMSER] Per Unit Routine Peripheral IV Discontinue [OM.PC] Routine Resuscitation Status Routine 07/15/20 00:32 SCREEN [BBK] Routine RH IMMUNE GLOBULIN [BBK] Routine 07/15/20 05:16 Ready for Discharge [RC] PER UNIT ROUTINE - Assessment Assessment:: 19yo P1 s/p PPD 1 Rh negative, for rhogam today - Plan Plan:: Routine Rhogam today Discharge home today
--- NOTE | 2020-07-15 07:10 | PCM48HPAN ---
Post Anesthesia Note - EVALUATION WITHIN 48HRS OF ANESTHETIC Vital Signs in Normal Range: Yes Patient Participated in Evaluation: Yes Respiratory Function Stable: Yes Airway Patent: Yes Cardiovascular Function Stable: Yes Hydration Status Stable: Yes Pain Control Satisfactory: Yes Nausea and Vomiting Control Satisfactory: Yes Mental Status Recovered: Yes Vital Signs: Last Vital Signs Temp 36.5 C 07/15/20 04:39 Pulse 94 07/15/20 04:39 Resp 20 07/15/20 04:39 BP 99/50 L 07/15/20 04:39 Pulse Ox 97 07/15/20 04:39
[2020-07-15] MEDS: Acetaminophen 500 MG Tab PO PRN ×2 (11:31→20:03)
[2020-07-15] MEDS: Docusate Sodium 100 MG Cap PO PRN (20:02)
[2020-07-16] MEDS: Ibuprofen 800 MG Tab PO PRN ×3 (02:14→17:53)
--- NOTE | 2020-07-16 09:31 | PCM.PNPP ---
- General Info Date of Service: 07/16/20 Subjective Update: 19yo P1 s/p PPD2 Resting comfortably in bed. No concerns overnight. Ambulating and voiding without difficulty. Lochia decreasing. Pain well controlled. Tolerating regular diet. - General Info Date of Service: 07/16/20 - Patient Data Vital Signs - Most Recent: Last Vital Signs Temp 97.8 F 07/16/20 08:00 Pulse 72 07/16/20 08:00 Resp 16 07/16/20 08:00 BP 106/57 L 07/16/20 08:00 Pulse Ox 97 07/16/20 08:00 Weight - Most Recent: 206 lb I&O - Last 24 Hours: Intake & Output 07/15/20 07/16/20 07/16/20 22:59 06:59 14:59 Intake Total 2 Balance 2 Lab Results - Last 24 Hours: Laboratory Results - last 24 hr 07/15/20 Range/Units 00:32 Screen NEGATIVE (NEGATIVE) RhIG Candidate? YES Rhogam Indicated YES, BABY RH POS H Med Orders - Current: Current Medications Acetaminophen (Tylenol Extra Strength) 500 mg PO Q4H PRN PRN Reason: Pain Acetaminophen (Tylenol Extra Strength) 1,000 mg PO Q4H PRN PRN Reason: Pain Last Admin: 07/15/20 20:03 Dose: 1,000 mg Documented by: Benzocaine/Menthol (Dermoplast Pain Relief 20%-0.5% [place]) 78 gm TOP ASDIRECTED PRN PRN Reason: Perineal Comfort Measure Bisacodyl (Dulcolax) 10 mg RECTAL ONETIME PRN PRN Reason: Constipation Carboprost Tromethamine (Hemabate Ds) 250 mcg IM ASDIRECTED PRN PRN Reason: Post Hemorrhage Docusate Sodium (Colace) 100 mg PO BID PRN PRN Reason: Constipation Last Admin: 07/15/20 20:02 Dose: 100 mg Documented by: Emollient Ointment (Lansinoh Hpa) 0 gm TOP ASDIRECTED PRN PRN Reason: Sore Nipples Lactated Ringer's (Ringers, Lactated) 1,000 mls @ 150 mls/hr IV ASDIRECTED ZION Last Admin: 07/14/20 18:36 Dose: 999 mls/hr Documented by: Oxytocin/Sodium Chloride (Oxytocin 30 Unit/500 Ml-Ns) 30 unit in 500 mls @ 999 mls/hr IV TITRATE ZION Last Admin: 07/14/20 22:59 Dose: 999 mls/hr Documented by: Tranexamic Acid 1,000 mg/ (Sodium Chloride) 110 mls @ 660 mls/hr IV ONETIME PRN PRN Reason: Bleeding Oxytocin/Sodium Chloride (Oxytocin 30 Unit/500 Ml-Ns) 30 unit in 500 mls @ 2 mls/hr IV TITRATE ZION; Protocol Ibuprofen (Motrin) 400 mg PO Q4H PRN PRN Reason: Pain Ibuprofen (Motrin) 800 mg PO Q6H PRN PRN Reason: Pain Last Admin: 07/16/20 09:01 Dose: 800 mg Documented by: Lidocaine HCl (Xylocaine 1%) 50 ml INJECT ONETIME PRN PRN Reason: Laceration repair Methylergonovine Maleate (Methergine) 0.2 mg IM ASDIRECTED PRN PRN Reason: Post Hemorrhage Misoprostol (Cytotec) 200 mcg PO ONETIME PRN PRN Reason: Post Hemorrhage Oxycodone HCl (Oxycodone) 5 mg PO Q2H PRN PRN Reason: Pain Sodium Chloride (Saline Flush) 10 ml FLUSH ASDIRECTED PRN PRN Reason: Keep Vein Open Sodium Chloride (Saline Flush) 2.5 ml FLUSH ASDIRECTED PRN PRN Reason: Keep Vein Open Sodium Chloride (Normal Saline) 10 ml IV ASDIRECTED PRN PRN Reason: IV Use Sterile Water (Sterile Water For Irrigation) 1,000 ml IRR ASDIRECTED PRN PRN Reason: delivery Witch Rebekah (Tucks) 1 pad TOP ASDIRECTED PRN PRN Reason: comfort care Discontinued Medications Butorphanol Tartrate (Stadol) 1 mg IVPUSH Q1H PRN PRN Reason: Pain Fentanyl (Sublimaze) Confirm Administered Dose 100 mcg .ROUTE .STK-MED ONE Stop: 07/14/20 18:22 Ropivacaine (Naropin 0.2%) Confirm Administered Dose 100 mls @ as directed .ROUTE .STK-MED ONE Stop: 07/14/20 18:22 Nalbuphine HCl (Nubain) 10 mg IVPUSH Q1H PRN PRN Reason: Pain (severe 7-10) - Infant Interaction Support Person: Significant Other - Recovery Exam Fundal Tone: Firm Fundal Level: 2 Fingerbreadths Below Umbilicus Fundal Placement: Midline Lochia Amount: Scant Lochia Color: Rubra/Red Perineum Description: Intact, Minimal Bruising/Swelling, Other (see below) Other Perinuem Description: 1st degree laceration Episiotomy/Laceration: Approximated Bladder Status: Voiding Urinary Elimination: Voided - Exam General: Alert Lungs: Normal Respiratory Effort Cardiovascular: Regular Rate GI/Abdominal Exam: Soft, Non-Tender Extremities: Normal Inspection Skin: Warm, Dry, Intact Wound/Incisions: Healing Well Neurological: No New Focal Deficit Psy/Mental Status: Normal Mood - Problem List Review Problem List Initiated/Reviewed/Updated: Yes - Assessment Assessment:: 19yo P1 s/p PPD 2 - Plan Plan:: Routine * Rh negative, received Rhogam yesterday * Meeting milestones today Dispo: stable. Anticipate discharge home today. Follow in 4 weeks for visit. Precautions reviewed including fever/chills, intractable nausea/vomiting, severe pain not controlled with Tylenol/Ibuprofen or heavy vaginal bleeding with soaking 2 pads and hour for more than one hour. Questions elicited and answered.
[2020-07-16] MEDS: Docusate Sodium 100 MG Cap PO PRN (13:01)
[2020-07-16] MEDS: Acetaminophen 500 MG Tab PO PRN (21:36)
--- NOTE | 2020-07-19 10:12 | OR ---
SURGEON: TRU LUZ DATE OF PROCEDURE: 07/15/2020 PREOPERATIVE DIAGNOSIS: A 19-year-old G1, P0, at 38 weeks and 2 days admitted in early labor, also Rh negative. POSTOPERATIVE DIAGNOSIS: A 19-year-old G1, P0, at 38 weeks and 2 days admitted in early labor, also Rh negative. PROCEDURE: Normal spontaneous vaginal delivery with repair of first-degree vaginal laceration. ESTIMATED BLOOD LOSS: 300. IV FLUIDS: Pitocin running. FINDING: A live male delivered score 8 and 9, weight is 3300g , BRIEF HISTORY: She was a low risk patient, came in complaining of contractions. She made change from 2 to 4, then she was admitted. Then, she was requesting epidural, which she got. An AROM was done. When AROM was done meconium-stained fluid was noted. Then, she was 6 cm for a while, so Pitocin was started. With Pitocin being started, then she made progress. Then patient became fully dilated. PROCEDURE IN DETAIL: The patient being fully dilated, she was encouraged to push. She had good pushing effort. She delivered the head, subsequently by the anterior and posterior shoulder, then body was delivered. Infant was placed on maternal abdomen. Delayed cord clamping was observed. Placenta was then delivered via controlled cord traction. Cord blood gases were obtained. The laceration was repaired with 2-0 Vicryl. Bimanual massage was done. Uterus was noted to be firm. Normal bleeding was noted. All instrument and pad counts were correct x2. The patient tolerated the procedure well and was left in the labor and Delivery room in stable condition. BRYCE HEATON /[id number] MTDD
== END 2020-07-16 22:18 | disposition home or self-care (01) | DRG 560 ==
LOC: MW.OBCHECK 12:34 → MW.OB 16:06 → OBSVTOIN 22:58 → MW.OB 07-15 02:43
PROVIDERS: ADMIT Obstetrics & Gynecology; ATTEND Obstetrics & Gynecology
PROC: 10E0XZZ Delivery of Products of Conception, External Approach (ICD-10-PCS; principal; 2020-07-14)
PROC: 10907ZC Drainage of Amniotic Fluid, Therapeutic from Products of Conception, Via Natural or Artificial Opening (ICD-10-PCS; 2020-07-14)
PROC: 4A1HXCZ Monitoring of Products of Conception, Cardiac Rate, External Approach (ICD-10-PCS; 2020-07-14)
PROC: 3E0334Z Introduction of Serum, Toxoid and Vaccine into Peripheral Vein, Percutaneous Approach (ICD-10-PCS; 2020-07-14)
PROC: 3E0R3BZ Introduction of Anesthetic Agent into Spinal Canal, Percutaneous Approach (ICD-10-PCS; 2020-07-14)
PROC: 00HU33Z Insertion of Infusion Device into Spinal Canal, Percutaneous Approach (ICD-10-PCS; 2020-07-14)
PROC: 0HQ9XZZ Repair Perineum Skin, External Approach (ICD-10-PCS; 2020-07-14)
PROC: 3E0P7VZ Introduction of Hormone into Female Reproductive, Via Natural or Artificial Opening (ICD-10-PCS; 2020-07-14)
DX: O77.0 Labor and delivery complicated by meconium in amniotic fluid (principal); Z3A.38 38 weeks gestation of pregnancy; Z37.0 Single live birth; O26.893 Other specified pregnancy related conditions, third trimester; Z67.41 Type O blood, Rh negative; O70.0 First degree perineal laceration during delivery; Z20.828 Contact with and (suspected) exposure to other viral communicable diseases
CPT/HCPCS: 01967; 36415; 51702; 59025; 59409; 82803; 85014; 85018; 85027; 85460; 86592; 86850; 86900; 86901; A9270-GY; J2590; J2792; J2795; J3010; J7120; U0002

== ENCOUNTER 2022-11-09 21:07 | Emergency (ER) | payer BC, OTHER ==
[2022-11-09] MEDS ORDERED: Ondansetron 4 MG/2 ML SDV ONE (21:36)
[2022-11-09] MEDS ORDERED: Ketorolac 30 MG/ML SDV IVPUSH ONE (21:56)
[2022-11-09] MEDS ORDERED: Sodium Chloride 0.9% 1,000 ML IV ONE (21:56)
[2022-11-09 22:18] LABS: CARBON DIOXIDE,CO2 26.5 mmol/L (21.0-32.0); POTASSIUM,K 3.5 mmol/L (3.5-5.1)
[2022-11-09] MEDS ORDERED: Iopamidol 755 MG/ML 500 ML Multipack Bottle IVPUSH STA (23:04)
== END 2022-11-09 23:58 | disposition home or self-care (01) ==
LOC: MW.ED 21:07
DX: N20.0 Calculus of kidney (principal); E66.9 Obesity, unspecified; Z68.35 Body mass index [BMI] 35.0-35.9, adult; Z90.49 Acquired absence of other specified parts of digestive tract
CPT/HCPCS: 36415; 74177; 74177-26; 80053; 81001; 83690; 84703; 85025; 96361; 96374; 99284; 99284-25; J1885; J7030; Q9967

== ENCOUNTER 2022-12-18 08:43 | Emergency (ER) | payer BC, OTHER ==
[2022-12-18] MEDS ORDERED: Sodium Chloride 0.9% 1,000 ML IV ONE (09:27)
[2022-12-18] MEDS ORDERED: Sodium Chloride 0.9% 10 ML Syringe FLUSH PRN (09:27)
[2022-12-18] MEDS ORDERED: Sodium Chloride 0.9% 2.5 ML Syringe FLUSH PRN (09:27)
[2022-12-18] MEDS ORDERED: Ondansetron 4 MG/2 ML SDV IVPUSH ONE (09:27)
[2022-12-18] MEDS ORDERED: Ketorolac 30 MG/ML SDV IVPUSH ONE (09:28)
[2022-12-18 10:43] LABS: CARBON DIOXIDE,CO2 23.6 mmol/L (21.0-32.0); POTASSIUM,K 3.9 mmol/L (3.5-5.1)
[2022-12-18] MEDS ORDERED: cefTRIAXone 1 GM in Sodium Chloride 0.9% 50 ML IV ONE (10:53)
[2022-12-18] MEDS ORDERED: cefTRIAXone 1 GM Vial IM ONE (11:15)
[2022-12-18] MEDS ORDERED: Lidocaine 1% 2 ML ONE (11:22)
[2022-12-18] MEDS ORDERED: Lidocaine 1% PF 2 ML SDV INJECT ONE (11:23)
== END 2022-12-18 12:05 | disposition home or self-care (01) ==
LOC: MW.ED 08:43
DX: N39.0 Urinary tract infection, site not specified (principal); E66.9 Obesity, unspecified; Z68.36 Body mass index [BMI] 36.0-36.9, adult; Z87.442 Personal history of urinary calculi; Z90.49 Acquired absence of other specified parts of digestive tract; Z79.899 Other long term (current) drug therapy
CPT/HCPCS: 36415; 74176; 80053; 81001; 81025; 83690; 85025; 87086; 96361; 96372; 96374; 96375; 99284; J0696; J1885; J2405; J3490; J7030

== ENCOUNTER 2023-03-15 02:21 | Emergency (ER) | payer BC | END 2023-03-15 03:00 | disposition home or self-care (01) | LOC: MW.ED 02:21 | DX: S90.01XA Contusion of right ankle, initial encounter (principal); E66.9 Obesity, unspecified; Z68.33 Body mass index [BMI] 33.0-33.9, adult; W22.8XXA Striking against or struck by other objects, initial encounter | CPT/HCPCS: 73610-26-RT; 73610-RT; 99283 ==

== ENCOUNTER 2024-08-01 18:29 | Emergency (ER) | payer BC ==
[2024-08-01] MEDS: Sodium Chloride 0.9% 2.5 ML Syringe FLUSH PRN (19:47)
[2024-08-01] MEDS: Sodium Chloride 0.9% 1,000 ML IV ONE (19:47)
[2024-08-01] MEDS: Ondansetron 4 MG/2 ML SDV IVPUSH ONE (19:47)
[2024-08-01] MEDS: Sodium Chloride 0.9% 10 ML Syringe FLUSH PRN (19:47)
[2024-08-01 19:52] LABS: BASOPHILS ABSOLUTE AUTO 0.03 K/uL (0.00-0.20); BASOPHILS PERCENT AUTO 0.2 % (0.0-1.0); EOSINOPHILS ABSOLUTE AUTO 0.17 K/uL (0.00-0.45); EOSINOPHILS PERCENT AUTO 1.2 % (0.0-6.0); HEMATOCRIT 42.1 % (37.0-47.0); HEMOGLOBIN 14.4 g/dL (12.0-16.0); IMMATURE GRAN ABSOLUTE AUTO 0.08 K/uL (0.00-0.05); IMMATURE GRAN PERCENT AUTO 0.6 % (0.0-0.4); LYMPHOCYTES ABSOLUTE AUTO 3.65 K/uL (1.00-4.80); LYMPHOCYTES PERCENT AUTO 25.8 % (24.0-44.0); MEAN CORPUSCULAR HEMOGLOBIN 30.9 pg (28.0-32.0); MEAN CORPUSCULAR HGB CONC 34.2 g/dL (32.0-36.0); MEAN CORPUSCULAR VOLUME 90.3 fL (83.0-99.0); MEAN PLATELET VOLUME 8.8 fL (9.4-12.3); MONOCYTES PERCENT AUTO 7.1 % (0.0-8.0); NEUTROPHILS ABSOLUTE AUTO 9.22 K/uL (1.80-7.70); NEUTROPHILS PERCENT AUTO 65.1 % (41.0-71.0); PLATELET COUNT,PLT 321 K/uL (150-400); RED BLOOD CELL COUNT 4.66 M/uL (4.10-5.30); WHITE BLOOD CELL COUNT,WBC 14.15 K/uL (3.9-11.3)
[2024-08-01] MEDS: Ketorolac 30 MG/ML SDV IVPUSH ONE (20:06)
[2024-08-01 20:15] LABS: A/G RATIO 1.1 (0.9-1.6); ALANINE AMINOTRANSFERASE,ALT 46 IU/L (14-63); ALBUMIN 4.3 g/dL (3.4-5.0); ALKALINE PHOSPHATASE 91 U/L (46-116); ASPARTATE AMNIOTRANSFERASE,AST 24 IU/L (15-37); BILIRUBIN TOTAL 1.1 mg/dL (0.2-1.0); BLOOD UREA NITROGEN,BUN 13 mg/dL (7.0-18.0); CALCIUM 9.1 mg/dL (8.5-10.1); CARBON DIOXIDE,CO2 25.3 mmol/L (21.0-32.0); CHLORIDE,CL 104 mmol/L (98-107); CREATININE 0.6 mg/dL (0.6-1.0); GLUCOSE RANDOM 122 mg/dL (74-106); LIPASE 22 U/L (16-77); POTASSIUM,K 3.5 mmol/L (3.5-5.1); PROTEIN TOTAL,TP 8.2 g/dL (6.4-8.2); SODIUM,NA 140 mmol/L (136-145)
[2024-08-01 20:23] LABS: ESTIMATED GFR 129 mL/min (>60)
[2024-08-01] MEDS: Iopamidol 755 MG/ML 500 ML Multipack Bottle IVPUSH ONE (21:03)
[2024-08-01 21:48] LABS: APPEARANCE,URINE CLEAR; BILIRUBIN,URINE NEGATIVE (NEGATIVE); COLOR,URINE YELLOW; GLUCOSE,URINE NEGATIVE (NEGATIVE); KETONES,URINE NEGATIVE (NEGATIVE); LEUKOCYTE ESTERASE,URINE NEGATIVE (NEGATIVE); NITRITE,URINE POSITIVE (NEGATIVE); OCCULT BLOOD,URINE NEGATIVE (NEGATIVE); PH,URINE 6.5 (5.0-8.0); PROTEIN,URINE NEGATIVE (NEGATIVE); UROBILINOGEN,URINE 0.2 EU/dL (<2.0)
[2024-08-01 21:57] LABS: BACTERIA,URINE FEW (NEGATIVE); EPITHELIAL CELLS,URINE FEW (NONE-FEW); MUCUS,URINE LIGHT (NONE-MOD); RBC,URINE 0-1 (0-2/HPF)
[2024-08-01] MEDS: Cephalexin 500 MG Cap PO ONE (22:03)
== END 2024-08-01 22:13 | disposition home or self-care (01) ==
LOC: MW.ED 18:29
DX: I88.0 Nonspecific mesenteric lymphadenitis (principal); Z90.49 Acquired absence of other specified parts of digestive tract; Z79.899 Other long term (current) drug therapy; Z75.8 Other problems related to medical facilities and other health care
CPT/HCPCS: 36415; 74177; 80053; 81001; 81025; 83690; 84703; 85025; 87086; 96361; 96374; 96375; 99284; A9270; J1885; J2405; J7030; Q9967; J3490

== ENCOUNTER 2024-10-03 16:05 | Emergency (ER) | payer BC ==
[2024-10-03] MEDS: Acetaminophen/oxyCODONE 325-10 MG Tab PO ONE (18:30)
[2024-10-03] MEDS: Ondansetron 4 MG Tab.DIS PO ONE (18:30)
== END 2024-10-03 19:53 | disposition home or self-care (01) ==
LOC: MW.ED 16:05
DX: G89.18 Other acute postprocedural pain (principal); K62.89 Other specified diseases of anus and rectum; Z90.49 Acquired absence of other specified parts of digestive tract; Z79.899 Other long term (current) drug therapy; Z75.8 Other problems related to medical facilities and other health care
CPT/HCPCS: 99283; A9270

== ENCOUNTER 2025-05-30 09:26 | Emergency (ER) | payer BC ==
[2025-05-30] MEDS: Sodium Chloride 0.9% 2.5 ML Syringe FLUSH PRN (09:45)
[2025-05-30] MEDS: Sodium Chloride 0.9% 10 ML Syringe FLUSH PRN (09:45)
[2025-05-30 09:47] LABS: BASOPHILS ABSOLUTE AUTO 0.03 K/uL (0.00-0.20); BASOPHILS PERCENT AUTO 0.5 % (0.0-1.0); EOSINOPHILS ABSOLUTE AUTO 0.06 K/uL (0.00-0.45); EOSINOPHILS PERCENT AUTO 1.0 % (0.0-6.0); IMMATURE GRAN ABSOLUTE AUTO 0.01 K/uL (0.00-0.05); IMMATURE GRAN PERCENT AUTO 0.2 % (0.0-0.4); LYMPHOCYTES ABSOLUTE AUTO 2.43 K/uL (1.00-4.80); LYMPHOCYTES PERCENT AUTO 41.8 % (24.0-44.0); MEAN PLATELET VOLUME 9.3 fL (9.4-12.3); MONOCYTES ABSOLUTE AUTO 0.29 K/uL (0.00-0.80); MONOCYTES PERCENT AUTO 5.0 % (0.0-8.0); NEUTROPHILS ABSOLUTE AUTO 3.00 K/uL (1.80-7.70); NEUTROPHILS PERCENT AUTO 51.5 % (41.0-71.0); NRBC ABSOLUTE 0.00 K/uL (0.00-0.02); NRBC PERCENT 0.0 /100WBC (0.0-0.2); PLATELET COUNT,PLT 242 K/uL (150-400); RED BLOOD CELL COUNT 4.03 M/uL (4.10-5.30); WHITE BLOOD CELL COUNT,WBC 5.82 K/uL (3.9-11.3)
[2025-05-30 09:58] LABS: APPEARANCE,URINE CLEAR; GLUCOSE,URINE NEGATIVE (NEGATIVE); OCCULT BLOOD,URINE NEGATIVE (NEGATIVE)
[2025-05-30 10:10] LABS: A/G RATIO 1.2 (0.9-1.6); ALANINE AMINOTRANSFERASE,ALT 28 IU/L (14-63); ASPARTATE AMNIOTRANSFERASE,AST 17 IU/L (15-37); BILIRUBIN TOTAL 1.0 mg/dL (0.2-1.0); BLOOD UREA NITROGEN,BUN 12 mg/dL (7.0-18.0); CARBON DIOXIDE,CO2 25.1 mmol/L (21.0-32.0); CHLORIDE,CL 106 mmol/L (98-107); CREATININE 0.5 mg/dL (0.6-1.0); EST CRCL DRUG DOSING (CG) 137.22 mL/min; GLUCOSE RANDOM 86 mg/dL (74-106); POTASSIUM,K 4.1 mmol/L (3.5-5.1); PROTEIN TOTAL,TP 7.4 g/dL (6.4-8.2); SODIUM,NA 141 mmol/L (136-145)
[2025-05-30] MEDS: Iopamidol 755 Mg/ML 100 ML Bottle IVPUSH ONE (10:12)
[2025-05-30 10:14] LABS: ESTIMATED GFR 134 mL/min (>60)
== END 2025-05-30 11:13 | disposition home or self-care (01) ==
LOC: MW.ED 09:26
DX: N20.0 Calculus of kidney (principal); R07.89 Other chest pain; Z79.899 Other long term (current) drug therapy
CPT/HCPCS: 36415; 71046; 74177; 80053; 81003; 81025; 83690; 84484; 85025; 93005; 99285; A9270; Q9967; 93010; 99283